=== PATIENT | female | born 1985 | race Caucasian/White ===

== ENCOUNTER 2016-09-13 17:51 | Emergency (ER) | payer BC ==
[2016-09-13] MEDS ORDERED: MAG-AL PLUS XS SUSP 30 ML UDC ONE (19:01)
[2016-09-13] MEDS ORDERED: LIDOCAINE VISCOUS 2% 15 ML UDC ONE (19:01)
[2016-09-13 19:09] LABS: BASOPHIL# 0.1 X 10^3uL (0.0-0.1); BASOPHILS 0.8 % (0.0-2.0); EOSINOPHILS 0.8 % (0.0-6.0); EOSINOPHILS# 0.1 X 10^3uL (0.0-0.4); HEMATOCRIT 37.6 % (36.0-48.0); HEMOGLOBIN 12.8 g/dL (12.0-16.0); LYMPHOCYTES 22.1 % (20.0-40.0); LYMPHOCYTES# 1.7 X 10^3uL (0.8-3.8); MEAN CELL VOLUME 75.6 fL (80.0-100.0); MEAN CORPUS. HGB CONCENTRATION 33.9 g/dL (32.0-36.0); MEAN CORPUSCULAR HEMOGLOBIN 25.6 pg (29.0-35.0); MEAN PLATELET VOLUME 8.3 fL (7.4-10.4); MONOCYTES 4.4 % (2.0-10.0); MONOCYTES# 0.3 X 10^3uL (0.2-1.0); NEUTROPHILS 71.9 % (54.0-75.0); NEUTROPHILS# 5.5 X 10^3uL (2.6-6.7); PLATELET COUNT 297 X 10^3uL (130-440); RED BLOOD COUNT 4.97 X 10^6uL (4.20-6.10); RED CELL DISTRIBUTION WIDTH 13.4 % (11.5-14.5); WHITE BLOOD COUNT 7.7 X 10^3uL (3.9-10.7)
[2016-09-13 19:20] LABS: A/G RATIO 1.2; ALBUMIN 4.3 g/dL (3.5-5.0); ALKALINE PHOSPHATASE 66 U/L (38-126); ALT 47 U/L (9-52); AST 37 U/L (14-36); BILIRUBIN, TOTAL 0.5 mg/dL (0.2-1.3); BLOOD UREA NITROGEN 12 mg/dL (7-17); CALCIUM 9.3 mg/dL (8.4-10.2); CHLORIDE 105 mmol/L (98-107); EST GLOMERULAR FILTRATION RATE > 60 mL/min; GLUCOSE 116 mg/dL (70-100); POTASSIUM 3.8 mmol/L (3.5-5.1); SODIUM 142 mmol/L (137-145); TOTAL PROTEIN 7.9 g/dL (6.3-8.2)
--- NOTE | 2016-09-13 19:32 | RADIOLOGY REPORT ---
HISTORY: Shortness of breath. COMPARISON: None. FINDINGS: 2 views of the chest were performed. The lungs are clear and well inflated. There is no evidence of pneumonia or pulmonary edema. There is no evidence of pleural effusion or pneumothorax. The heart is not enlarged. The bones appear unremarkable. IMPRESSION: Normal chest. Final Electronic Signature: This report was electronically signed by Sandoval Grey MD on 09/14/19 17 7:30 PM. garo /
[2016-09-13] MEDS ORDERED: PANTOPRAZOLE 40 MG TABLET PO ONE (20:00)
--- NOTE | 2016-09-13 20:03 | ER PHYSICIAN DOCUMENTATION ---
Physician Documentation [facility] Name:Caty Kapoor Age:31 yrs Sex:Female :1985 Arrival Date:09/13/2016 Time:17:51 BedTrauma-C Private MD: Jeff Sandoval Disposition: 09/13 19:40 Critical Care: not applicable. tl1 09/14 19:47 Chart complete. tl1 Disposition: 09/13/16 19:45 Discharged to Home/Self Care. Impression: Gastritis. - Condition is Good. - Discharge Instructions: GASTRITIS (Adult). - Medical Reconciliation form form. - Follow up: Emergency Department; When: 4- 6 days; Reason: Continuance of care. - Problem is new. - Symptoms have improved. - Notes: Buy Omeprazole 20mg tabs. Use one per day. Follow up w a GI doc or your PCP. We gave you a GI cocktail which took away your pain. HPI: 09/13 18:04 This 31 yrs old Female presents to ER with complaints of Breathing Difficulty.tl1 19:33 Well until 2 days ago when she developed a burning epigastric/bilateral upper quadrant tl1 sensation that has been constant. She tried antacids with no effect. Yesterday she was nauseated, but did not vomit. She is s/p lap chlole, and bilateral TL.. Today the pain became more sharp and up under both costal margins, worse on the left, with some radiation to the mid lateral chest which is worse with inspiration and when supine, better when she sits upright. No air hunger. No f/c/s. No cough or hemoptysis. She has a h/o, last fall of a stroke and has a cerbebral aneurysm of some sort.. Historical: - Allergies: No known drug Allergies; - Home Meds: 1. levothyroxine oral - PMHx: cerebral aneurysm; - PSHx: None; - Ebola Screening: : Patient negative for fever greater than or equal to 101.5 degrees Fahrenheit, and additional compatible Ebola Virus Disease symptoms. Patient denies exposure to infectious person. Patient denies travel to an Ebola-affected area in the 21 days before illness onset. No symptoms or risks identified at this time. . - Immunization history: Pneumococcal vaccine status is unknown, Flu Vaccine < 1 year. - Social history: Smoking status: Patient states was never smoker of tobacco. Patient/guardian denies using alcohol, street drugs, IV drugs, marijuana. ROS: 19:37 Respiratory: Positive for pleurisy, Negative for cough, dyspnea on exertion, tl1 hemoptysis, shortness of breath, sputum production, wheezing. 19:37 All other systems are negative. Exam: 19:38 Constitutional: This is a well developed, well nourished patient who is awake, alert, tl1 and in no acute distress. Head/Face: Normocephalic, atraumatic. 19:38 ENT: Nares patent. No nasal discharge, no septal abnormalities noted. Tympanic tl1 membranes are normal and external auditory canals are clear. Oropharynx with no redness, swelling, or masses, exudates, or evidence of obstruction, uvula midline. Mucous membranes moist. 19:38 Neck: ROM/movement: is normal, is supple. 19:38 Chest/axilla: Palpation: tenderness, is not appreciated. 19:38 Cardiovascular: Rate: normal, Rhythm: regular, Heart sounds: normal, Edema: is not appreciated, JVD: is not appreciated. 19:38 Respiratory: Respirations: normal, Breath sounds: are normal, no rales, rhonchi, no stridor, no wheezing. 19:38 Abdomen/GI: Inspection: abdomen appears normal, Bowel sounds: diminished, Palpation: soft, mild abdominal tenderness, in the epigastric area, right upper quadrant and left upper quadrant. 19:38 Back: CVA tenderness, is absent. 19:38 Skin: Exam negative for acute changes. 19:38 Neuro: Exam negative for acute changes. Vital Signs: 18:14 BP 126 / 80; Pulse 90; Resp 18; Temp 98.4; Pulse Ox 95% on R/A; sc1 MDM: 18:03 Patient medically screened. tl1 19:39 ED course: At change of shift, at 1900, her care was turned over to Dr Ravi Pedroza tl1 pending the results of her labs and chest X-ray. A GI cocktail was ordered at that time, with some reported improvement in her symptoms.. 09/13 19:11 Order name: CBC AUTO DIF, MDIF/RMOR IF IND; Complete Time: 19:49 EDMS 09/14 19:48 Interpretation: WHITE BLOOD COUNT 7.7; HEMOGLOBIN 12.8; HEMATOCRIT 37.6; PLATELET COUNT 1 297. 09/13 19:22 Order name: COMPREHENSIVE METABOLIC PANEL; Complete Time: 19:49 EDFL 09/14 19:48 Interpretation: Normal. 1 09/13 19:36 Order name: HCG, SERUM; Complete Time: 19:49 EDMS 09/14 19:48 Interpretation: Normal: HCG, SERUM NEGATIVE. [facility] 09/13 19:33 Order name: CXR 2V [id number]; Complete Time: 19:49 EDFL 09/14 19:49 Interpretation: NAD. SEE RADIOLOGIST REPORT. [facility] Dispensed Medications: 19:45 Drug: Protonix 40 mg; Route: PO; [facility] 19:55 Follow up: Response: No adverse reaction; Medication administered at discharge. [facility] [place] Point of Care Testing: Urine Dip: 19:32 pH: 5.5; ; Specific [place]: 1.030; Ketones: Negative; Glucose: Negative; Protein: sc1 Negative; Leukocytes: Negative; Nitrite: Negative ; Blood: Negative; Bilirubin: Negative ; Urobilinogen: Normal Signatures: Lakeisha Mendez RN RN sc1 Ravi Pedroza MD MD Jeff Arce MD MD 1
--- NOTE | 2016-09-13 20:03 | ER NURSING DOCUMENTATION ---
Nurse's Notes [facility] Name:Caty Kapoor Age:31 yrs Sex:Female :1985 Arrival Date:09/13/2016 Time:17:51 BedTrauma-C Private MD: Diagnosis:Gastritis Presentation: 09/13 18:08 Presenting complaint: Patient states: burning in her chest since . Has taken sc1 numerous GI meds with no relief. Transition of care: Home. Notified ED Physician of patient's arrival and CC Dr. Arce notified. 18:08 Acuity: MIRZA 3 sc1 18:08 Method Of Arrival: Private Vehicle sc1 Triage Assessment: 18:14 General: Appears in no apparent distress, well developed, well nourished, well groomed, sc1 Behavior is cooperative, pleasant. Pain: Complains of pain in chest. Respiratory: Reports shortness of breath on exertion Onset: The symptoms/episode began/occurred at an unknown time. the patient has mild shortness of breath. Historical: - Allergies: No known drug Allergies; - Home Meds: 1. levothyroxine oral - PMHx: cerebral aneurysm; - PSHx: None; - Ebola Screening: : Patient negative for fever greater than or equal to 101.5 degrees Fahrenheit, and additional compatible Ebola Virus Disease symptoms. Patient denies exposure to infectious person. Patient denies travel to an Ebola-affected area in the 21 days before illness onset. No symptoms or risks identified at this time. . - Immunization history: Pneumococcal vaccine status is unknown, Flu Vaccine < 1 year. - Social history: Smoking status: Patient states was never smoker of tobacco. Patient/guardian denies using alcohol, street drugs, IV drugs, marijuana. Screenin:27 Infectious Disease Risk None. Abuse screen: Denies threats or abuse. Nutritional sc1 screening: No deficits noted. Vital Signs: 18:14 BP 126 / 80; Pulse 90; Resp 18; Temp 98.4; Pulse Ox 95% on R/A; sc1 ED Course: 17:52 Patient arrived in ED. arc 18:03 Jeff Arce MD is Attending Physician. tl1 18:08 Lakeisha Mendez, FLAQUITO is Primary Nurse. sc1 18:09 Triage completed. sc1 18:15 Notified ED Physician of patient's arrival and chief complaint. Dr. Arce notified. Arm sc1 band placed on Bed in low position Call Light in Reach Gowned HOB Elevated Side rails up x2. 18:47 Patient moved to radiology. pm1 19:18 Patient moved back from radiology. pm1 Administered Medications: 19:45 Drug: Protonix 40 mg; Route: PO; me1 19:55 Follow up: Response: No adverse reaction; Medication administered at discharge. [facility] [place] Point of Care Testing: Urine Dip: 19:32 pH: 5.5; ; Specific [place]: 1.030; Ketones: Negative; Glucose: Negative; Protein: sc1 Negative; Leukocytes: Negative; Nitrite: Negative ; Blood: Negative; Bilirubin: Negative ; Urobilinogen: Normal Outcome: 19:45 Discharge ordered by . jolynn 20:03 Patient left the ED. [facility] [place] 09/14 13:34 Discharge F/U Call: Spoke with: patient. Did your discharge instructions answer all lc of your questions? yes Overall Care on a scale of 1-10 with 10 being the best care, you rate our care as: Other comments: FEELING MUCH BETTER Signatures: Yovana Srinivasan, FLAQUITO RN Lakeisha Mendez RN RN sc1 Ravi Pedroza MD MD jm McBride, Philisha 1 Jeff Arce MD MD tl1 Meme Macedo, Reg Reg arc
== END 2016-09-13 20:03 | disposition home or self-care (01) ==
LOC: ER 17:51
DX: K29.70 Gastritis, unspecified, without bleeding (principal); R10.11 Right upper quadrant pain; R10.12 Left upper quadrant pain; R09.1 Pleurisy
CPT/HCPCS: 36415; 71020; 80053; 84703; 85025; 99283